=== PATIENT | male | born 1950 | race Caucasian/White ===

== ENCOUNTER 2021-05-18 17:32 | Inpatient (IN) | payer MEDICARE, OTHER ==
[~2021-05-18] VITALS: Ht 165.1 cm; Wt 77.7 kg
[~2021-05-18 17:32] MED LIST: AMLO2.5T2 PO; CARV3.122 PO; CLON-528 PO; COU3T PO; ENOX100S3 SQ; LEVO75TA56 PO; LOSA50TA3 PO; PANT40TA54 PO; ROSU20TA2 PO
[2021-05-18 18:46] LABS: BASOPHILS # (AUTO) 0.1 X10'3 (0-0.2); BASOPHILS % (AUTO) 0.8 % (0-1); EOSINOPHILS % (AUTO) 0.4 % (0-6); HEMOGLOBIN 10.8 g/dl (14.0-17.9); LYMPHOCYTES # (AUTO) 0.6 X10'3 (1.1-4.8); MEAN CORPUSCULAR HEMOGLOBIN 26.8 PG (27.0-31.0); MEAN CORPUSCULAR HGB CONC 31.7 g/dL (33.0-36.5); MEAN CORPUSCULAR VOLUME 84.7 FL (78-98); MEAN PLATELET VOLUME 8.6 FL (7.4-10.4); MONOCYTES # (AUTO) 0.9 X10'3 (0-0.9); MONOCYTES % (AUTO) 13.9 % (2-12); NEUTROPHILS % (AUTO) 75.9 % (42-75); PLATELET COUNT 337 X10'3 (140-440); RED BLOOD COUNT 4.02 X10'6 (4.70-6.10); RED CELL DISTRIBUTION WIDTH 18.8 % (11.5-14.5); WHITE BLOOD COUNT 6.6 X10'3 (4.5-11.0)
[2021-05-18 18:54] LABS: ALANINE AMINOTRANSFERASE 23 U/L (12-78); ALBUMIN 3.6 G/DL (3.4-5.0); ALBUMIN/GLOBULIN RATIO 1.1 (1.1-1.5); ALKALINE PHOSPHATASE 82 IU/L (46-116); ANION GAP 14 (8-16); ASPARTATE AMINO TRANSFERASE 26 U/L (10-37); BILIRUBIN,TOTAL 0.7 MG/DL (0.1-1.0); BLOOD UREA NITROGEN 53 MG/DL (7-18); BUN/CREATININE RATIO 22.6 (5.4-32.0); CALCIUM 8.8 MG/DL (8.5-10.1); CHLORIDE 104 MMOL/L (99-107); CREATININE 2.35 MG/DL (0.60-1.10); GLUCOSE 147 MG/DL (70-104); POTASSIUM 4.7 MMOL/L (3.5-5.1); SODIUM 142 MMOL/L (135-145); eGFR 27 ML/MIN
[2021-05-18 19:32] LABS: ANISOCYTOSIS 2+; HYPOCHROMASIA 1+; PLATELET ESTIMATE NORMAL
[2021-05-18 19:33] LABS: ELLIPTOCYTES 1+
[2021-05-18 19:37] LABS: ACANTHOCYTES FEW; LARGE PLATELETS FEW
[2021-05-19] MEDS ORDERED: acetaminophen 325mg tablet PO PRN (00:15)
[2021-05-19] MEDS ORDERED: potassium Cl 40MEQ/1/2NS 520ml 520 ML IV PRN ×2 (00:15)
[2021-05-19] MEDS ORDERED: ondansetron/PF 4mg/2ml inj IV PRN (00:15)
[2021-05-19] MEDS ORDERED: magnesium hydroxide 30ml (MOM) UD suspension PO PRN (00:15)
[2021-05-19] MEDS ORDERED: potassium Cl 20 mEq SR tablet PO PRN ×2 (00:15)
[2021-05-19] MEDS ORDERED: mag hydrox/Alum hydrox/simeth 30ml oral suspension PO PRN (00:15)
[2021-05-19] MEDS ORDERED: COLC0.6T72 PO (00:34)
[2021-05-19] MEDS ORDERED: WARF3TAB56 PO (00:34)
[2021-05-19] MEDS ORDERED: LEVO75TA7 PO (00:34)
[2021-05-19] MEDS ORDERED: CARV-50 PO (00:34)
[2021-05-19] MEDS ORDERED: FURO40TA4 PO (00:34)
[2021-05-19] MEDS ORDERED: ROSU10TA28 PO (00:34)
[2021-05-19] MEDS ORDERED: LOSA25TA96 PO (00:34)
[2021-05-19] MEDS ORDERED: PANT-47 PO (00:34)
[2021-05-19] MEDS ORDERED: FEBU80TA3 PO (00:34)
[2021-05-19 02:56] LABS: LACTATE DEHYDROGENASE 274 U/L (85-227)
[2021-05-19] MEDS: levoTHYROXINE 75mcg tablet PO SCH (07:35)
[2021-05-19] MEDS: pantoprazole 40mg Tablet.DR PO SCH (07:35)
[2021-05-19] MEDS: carvedilol 6.25mg tablet PO SCH ×2 (07:35→20:45)
[2021-05-19] MEDS: docusate sod 100mg capsule PO SCH ×2 (07:35→20:42)
[2021-05-19] MEDS: febuxostat 40mg tablet PO SCH (08:00)
[2021-05-19] MEDS: K and/or MAG REPLACEMENT MC SCH ×3 (08:00→20:00)
[2021-05-19] MEDS: colchicine 0.6mg tablet PO SCH (08:00)
[2021-05-19] MEDS ORDERED: PERFLUTREN PROTEIN-A MICROSPHR (Optison) 0.22 MG/ML 3ML VIAL IV ONE (08:00)
[2021-05-19] MEDS ORDERED: furosemide 10 MG/1 ML 10ml inj IV SCH (08:00)
[2021-05-19] MEDS ORDERED: heparin, porcine 5000 units/ml vial SQ SCH (08:00)
[2021-05-19] MEDS ORDERED: magnesium Cl slow-release 64mg tablet PO PRN (10:00)
[2021-05-19] MEDS ORDERED: magnesium 4gm in 100ml NS 100 ML IV PRN (10:00)
[2021-05-19 15:00] VITALS: BP 121/72
[2021-05-19 18:00] VITALS: BP 111/69
--- NOTE | 2021-05-19 18:26 | NUR ---
Received report althea Martines RN
[2021-05-19] MEDS: furosemide 40mg/4ml inj IV SCH (20:43)
[2021-05-19] MEDS ORDERED: atorvastatin 20mg tablet PO SCH (21:00)
[2021-05-19] MEDS ORDERED: warfarin 3mg tablet PO ONE (21:00)
[2021-05-19] MEDS ORDERED: losartan 25mg tablet PO SCH (21:00)
[2021-05-19] MEDS: clonazePAM 0.5mg tablet PO SCH (21:15)
[2021-05-19 22:00] VITALS: BP 125/80
[2021-05-20 02:00] VITALS: BP 118/76
--- NOTE | 2021-05-20 06:53 | NUR ---
Report given to Amara GARDNER.
[2021-05-20 06:56] LABS: ALANINE AMINOTRANSFERASE 20 U/L (12-78); ALBUMIN 3.7 G/DL (3.4-5.0); ALBUMIN/GLOBULIN RATIO 1.2 (1.1-1.5); ALKALINE PHOSPHATASE 82 IU/L (46-116); ANION GAP 11 (8-16); ASPARTATE AMINO TRANSFERASE 28 U/L (10-37); BASOPHILS % (AUTO) 0.7 % (0-1); BILIRUBIN,TOTAL 0.7 MG/DL (0.1-1.0); BLOOD UREA NITROGEN 53 MG/DL (7-18); BUN/CREATININE RATIO 26.4 (5.4-32.0); CHLORIDE 106 MMOL/L (99-107); CREATININE 2.01 MG/DL (0.60-1.10); EOSINOPHILS # (AUTO) 0.1 X10'3 (0-0.9); EOSINOPHILS % (AUTO) 0.9 % (0-6); GLUCOSE 110 MG/DL (70-104); HEMOGLOBIN 10.2 g/dl (14.0-17.9); LYMPHOCYTES # (AUTO) 0.7 X10'3 (1.1-4.8); LYMPHOCYTES % (AUTO) 10.9 % (21-51); MAGNESIUM 2.3 MG/DL (1.5-2.4); MEAN CORPUSCULAR HEMOGLOBIN 26.9 PG (27.0-31.0); MEAN CORPUSCULAR VOLUME 84.1 FL (78-98); MEAN PLATELET VOLUME 8.6 FL (7.4-10.4); MONOCYTES # (AUTO) 0.8 X10'3 (0-0.9); MONOCYTES % (AUTO) 12.5 % (2-12); PHOSPHORUS 4.2 MG/DL (2.3-4.5); PLATELET COUNT 316 X10'3 (140-440); POTASSIUM 3.4 MMOL/L (3.5-5.1); RED CELL DISTRIBUTION WIDTH 19.1 % (11.5-14.5); SODIUM 143 MMOL/L (135-145); TOTAL CARBON DIOXIDE 26.5 MMOL/L (24-32); TOTAL PROTEIN 6.8 G/DL (6.4-8.2); WHITE BLOOD COUNT 6.6 X10'3 (4.5-11.0); eGFR 33 ML/MIN
[2021-05-20 07:00] VITALS: BP 132/78
[2021-05-20] MEDS: K and/or MAG REPLACEMENT MC SCH ×2 (08:00)
[2021-05-20] MEDS: furosemide 40mg/4ml inj IV SCH (08:08)
[2021-05-20] MEDS: carvedilol 6.25mg tablet PO SCH (08:09)
[2021-05-20] MEDS: levoTHYROXINE 75mcg tablet PO SCH (08:09)
[2021-05-20] MEDS: febuxostat 40mg tablet PO SCH (08:09)
[2021-05-20] MEDS: docusate sod 100mg capsule PO SCH (08:09)
[2021-05-20] MEDS: colchicine 0.6mg tablet PO SCH (08:09)
[2021-05-20] MEDS: pantoprazole 40mg Tablet.DR PO SCH (08:09)
[2021-05-20] MEDS: clonazePAM 0.5mg tablet PO SCH (08:09)
[2021-05-20] MEDS ORDERED: FURO40TA4 PO (11:18)
[2021-05-20] MEDS ORDERED: POTA-207 PO (11:18)
--- NOTE | 2021-05-20 12:43 | NUR ---
Pt was DC to home at 1238 and was accompanied by his . PIV was removed with cannula intact. RX were escripted to [facility] in [place]. DC instructions and warning s/s were reviewed with the patient and his and they verbalized understanding. Patient alert, oriented, and appropriate at time of DC.
== END 2021-05-20 12:38 | disposition home or self-care (01) | DRG 682 ==
LOC: ER 17:34 → ED HOLD 05-19 00:18 → PCU 3S 05-19 13:48
PROVIDERS: ADMIT Internal Medicine; ATTEND Family Medicine
DX: N17.0 Acute kidney failure with tubular necrosis (principal); I50.21 Acute systolic (congestive) heart failure; I13.0 Hypertensive heart and chronic kidney disease with heart failure and stage 1 through stage 4 chronic kidney disease, or unspecified chronic kidney disease; I48.91 Unspecified atrial fibrillation; E87.6 Hypokalemia; I08.1 Rheumatic disorders of both mitral and tricuspid valves; F41.9 Anxiety disorder, unspecified; M10.9 Gout, unspecified; N18.9 Chronic kidney disease, unspecified; Z79.01 Long term (current) use of anticoagulants; Z79.899 Other long term (current) drug therapy; Z87.891 Personal history of nicotine dependence; Z95.0 Presence of cardiac pacemaker; Z95.2 Presence of prosthetic heart valve
CPT/HCPCS: 36415; 71046; 80053; 83615; 83735; 83880; 84100; 84484; 85008; 85025; 85610; 93005; 93306; 99285; G0378; J1940

== ENCOUNTER 2021-12-25 11:35 | Day surgery (SDC) | payer MEDICARE, OTHER ==
[2021-12-20 11:44] LABS: BASOPHILS # (AUTO) 0.1 X10'3 (0-0.2); BASOPHILS % (AUTO) 0.6 % (0-1); EOSINOPHILS # (AUTO) 0.3 X10'3 (0-0.9); EOSINOPHILS % (AUTO) 3.2 % (0-6); HEMATOCRIT 41.3 % (42.0-52.0); HEMOGLOBIN 13.8 g/dl (14.0-17.9); LYMPHOCYTES # (AUTO) 0.9 X10'3 (1.1-4.8); LYMPHOCYTES % (AUTO) 10.8 % (21-51); MEAN CORPUSCULAR HEMOGLOBIN 32.1 PG (27.0-31.0); MEAN CORPUSCULAR HGB CONC 33.4 g/dL (33.0-36.5); MEAN PLATELET VOLUME 8.5 FL (7.4-10.4); MONOCYTES % (AUTO) 11.1 % (2-12); NEUTROPHILS # (AUTO) 6.5 X10'3 (1.8-7.7); NEUTROPHILS % (AUTO) 74.3 % (42-75); PLATELET COUNT 331 X10'3 (140-440); RED CELL DISTRIBUTION WIDTH 15.2 % (11.5-14.5); WHITE BLOOD COUNT 8.8 X10'3 (4.5-11.0)
[2021-12-20 11:56] LABS: APTT 42 SECONDS (22-32)
[2021-12-20 12:02] LABS: ALBUMIN 4.2 G/DL (3.4-5.0); ANION GAP 12 (8-16); BLOOD UREA NITROGEN 65 MG/DL (7-18); BUN/CREATININE RATIO 26.5 (5.4-32.0); CALCIUM 9.5 MG/DL (8.5-10.1); CHLORIDE 100 MMOL/L (99-107); CHOL/HDL RATIO 3.5 (0.00-4.99); CHOLESTEROL 162 MG/DL (0-200); CREATININE 2.45 MG/DL (0.60-1.10); GLUCOSE 117 MG/DL (70-104); HDL CHOLESTEROL 46 MG/DL (35-60); LDL CHOLESTEROL 73 MG/DL (50-100); POTASSIUM 4.9 MMOL/L (3.5-5.1); SODIUM 139 MMOL/L (135-145); TOTAL CARBON DIOXIDE 26.6 MMOL/L (24-32); TRIGLYCERIDES 201 MG/DL (20-135); eGFR 26 ML/MIN
[~2021-12-25] VITALS: Ht 165.1 cm; Wt 65.7 kg
[2021-12-25] VITALS (10 sets, daily range): BP systolic 96–126; BP diastolic 55–68
[~2021-12-25 11:35] MED LIST changes: -AMLO2.5T2 PO; +CARV-50 PO; -CARV3.122 PO; -CLON-528 PO; +COLC0.6T72 PO; -COU3T PO; -ENOX100S3 SQ; +FEBU80TA3 PO; +FURO40TA4 PO; -LEVO75TA56 PO; +LEVO75TA7 PO; +LOSA25TA96 PO; -LOSA50TA3 PO; +PANT-47 PO; -PANT40TA54 PO; +POTA-207 PO; +ROSU10TA28 PO; -ROSU20TA2 PO; +WARF3TAB56 PO
[2021-12-25] MEDS ORDERED: normal saline 1,000 ML IV SCH (11:55)
[2021-12-25] MEDS ORDERED: LORazepam 0.5 MG tablet PO PRN (11:55)
[2021-12-25] MEDS ORDERED: diphenhydrAMINE 25mg capsule PO PRN (11:55)
[2021-12-25] MEDS ORDERED: WARF-65 PO (12:23)
[2021-12-25] MEDS ORDERED: FURO40TA4 PO (12:23)
[2021-12-25] MEDS ORDERED: DAPA10TA PO (12:23)
[2021-12-25] MEDS ORDERED: ENOX60DI10 SQ (12:23)
[2021-12-25] MEDS ORDERED: CLON0.5T5 PO (12:23)
[2021-12-25] MEDS ORDERED: LEVO75TA56 PO (12:23)
[2021-12-25] MEDS ORDERED: nitroGLYCERIN-Tridil 50MG/D5W 0 ML IV ONE (12:43)
[2021-12-25] MEDS ORDERED: LIDOcaine 1%/PF 5ML 10 MG/ML VIAL ONE (12:43)
[2021-12-25] MEDS ORDERED: heparin 1,000unit/ml 10ml vial 0 ML ONE (12:43)
[2021-12-25] MEDS ORDERED: LIDOcaine 1% 30ml preserv. free vial ONE (12:44)
[2021-12-25] MEDS ORDERED: heparin 1,000 UNITS/NS 500ml 0 ML ONE (12:44)
[2021-12-25] MEDS ORDERED: midazolam 1 mg/ML 2ml injection ONE (12:44)
[2021-12-25] MEDS ORDERED: verapamil 2.5 mg/ml inj IV ONE ×2 (12:44→12:48)
[2021-12-25] MEDS ORDERED: nitroGLYCERIN-Tridil 50MG/D5W 250 ML IV ONE (12:44)
[2021-12-25] MEDS ORDERED: fentaNYL/PF 50MCG/1 ML 2ML syringe ONE (12:44)
[2021-12-25] MEDS ORDERED: heparin 1,000unit/ml 10ml vial 10 ML ONE (12:45)
[2021-12-25] MEDS ORDERED: iohexol 350MG/ML 100ml bottle IV ONE ×2 (12:45→12:48)
[2021-12-25] MEDS ORDERED: COLC0.6T72 PO (12:50)
[2021-12-25] MEDS ORDERED: ondansetron/PF 4mg/2ml inj IV PRN (14:55)
[2021-12-25] MEDS ORDERED: HYDROcodone/acetaminophen 5mg/325mg tablet PO PRN (15:00)
[2021-12-25] MEDS ORDERED: HYDROcodone/acetaminophen 10/325mg tab PO PRN (15:00)
[2021-12-25] MEDS ORDERED: proCHLORperazine 10 MG/2 ml inj IV PRN (15:00)
[2021-12-26 07:16] LABS: ISTAT HGB ART 12.9 g/dl (14.0-18.0); ISTAT Hct ART 38 %PCV (42-52); ISTAT O2 SATURATION ARTERIAL 96 % (95-98); ISTAT SOURCE ART
[2021-12-26 10:11] LABS: ISTAT Hct MIX 40 %PCV (42-52); ISTAT O2 SATURATION MIX VENOUS 60 % (60-80); ISTAT SOURCE VEN
== END 2021-12-25 16:47 | disposition home or self-care (01) ==
LOC: SSTAY O 11:35
PROVIDERS: ATTEND Student in an Organized Health Care Education/Training Program
DX: I11.0 Hypertensive heart disease with heart failure (principal); I50.22 Chronic systolic (congestive) heart failure; I25.10 Atherosclerotic heart disease of native coronary artery without angina pectoris; I48.91 Unspecified atrial fibrillation; I42.9 Cardiomyopathy, unspecified; E03.9 Hypothyroidism, unspecified; I08.0 Rheumatic disorders of both mitral and aortic valves; E78.5 Hyperlipidemia, unspecified; Z79.899 Other long term (current) drug therapy; Z79.01 Long term (current) use of anticoagulants; Z95.0 Presence of cardiac pacemaker; Z95.2 Presence of prosthetic heart valve; Z87.891 Personal history of nicotine dependence
CPT/HCPCS: 36415; 80048; 80061; 82803; 85014; 85025; 85610; 85730; 93005; 93456; 99152; 99153; C1751; C1769; C1894; J1644; J2250; J3010; J3490; J7030; Q0163; Q9967; A5120; A6258; A6402

== ENCOUNTER 2022-04-10 05:37 | Inpatient (IN) | payer MEDICARE, OTHER ==
[2022-04-08 12:11] LABS: BASOPHILS # (AUTO) 0.1 X10'3 (0-0.2); BASOPHILS % (AUTO) 0.6 % (0-1); EOSINOPHILS # (AUTO) 0.2 X10'3 (0-0.9); EOSINOPHILS % (AUTO) 2.6 % (0-6); LYMPHOCYTES # (AUTO) 0.9 X10'3 (1.1-4.8); LYMPHOCYTES % (AUTO) 9.2 % (21-51); MEAN CORPUSCULAR HEMOGLOBIN 33.2 PG (27.0-31.0); MEAN CORPUSCULAR VOLUME 97.6 FL (78-98); MEAN PLATELET VOLUME 8.6 FL (7.4-10.4); MONOCYTES # (AUTO) 1.1 X10'3 (0-0.9); MONOCYTES % (AUTO) 11.6 % (2-12); PRE OP HEMATOCRIT 44.2 % (42.0-52.0); PRE OP HEMOGLOBIN 15.1 g/dL (14.0-17.9); PRE OP PLATELET COUNT 322 X10'3 (140-440); RED BLOOD COUNT 4.53 X10'6 (4.70-6.10); RED CELL DISTRIBUTION WIDTH 13.1 % (11.5-14.5)
[2022-04-08 12:19] LABS: CLARITY,URINE CLEAR (Clear); COLOR,URINE YELLOW (Yellow); GLUCOSE, URINE >=1000 mg/dl (Neg); KETONES,URINE NEGATIVE (Neg); LEUKOCYTE ESTERASE ,URINE NEGATIVE (Neg); NITRITES, URINE NEGATIVE (Neg); OCCULT BLOOD,URINE NEGATIVE (Neg); PH,URINE 5.5 (4.8-8.0); PROTEIN,URINE NEGATIVE (Neg); UROBILINOGEN,URINE 0.2 E.U/dL (0.2-1.0)
[2022-04-08 12:24] LABS: PRE OP PROTIME 19.4 SECONDS (9.0-12.0)
[2022-04-08 12:25] LABS: UA COLLECTION TYPE CLN CATCH MIDSTREAM
[2022-04-08 12:26] LABS: BACTERIA,URINE NONE SEEN /HPF (Neg); MUCUS STRANDS NONE SEEN /LPF (Neg); RBC,URINE NONE SEEN /HPF (0-2); SQUAMOUS EPITHELIAL CELL,UR FEW /LPF (FEW); WBC,URINE NONE SEEN /HPF (0-4)
[2022-04-08 12:40] LABS: ALBUMIN 4.4 G/DL (3.4-5.0); ALBUMIN/GLOBULIN RATIO 1.1 (1.1-1.5); ALKALINE PHOSPHATASE 93 IU/L (46-116); BLOOD UREA NITROGEN 76 MG/DL (7-18); BUN/CREATININE RATIO 30.8 (5.4-32.0); CHLORIDE 97 MMOL/L (99-107); CREATININE 2.47 MG/DL (0.60-1.10); PRE OP ALT 32 U/L (30-65); PRE OP ANION GAP 10 (8-16); PRE OP AST 37 U/L (10-37); PRE OP BILIRUB, TOTAL 0.7 MG/DL (0.0-1.0); PRE OP GLUCOSE 132 MG/DL (70-104); PRE OP POTASSIUM 4.8 MMOL/L (3.4-5.1); PRE OP SODIUM 137 MMOL/L (135-145); TOTAL CARBON DIOXIDE 30.3 MMOL/L (24-32); TOTAL PROTEIN 8.3 G/DL (6.4-8.2); eGFR 26 ML/MIN
[2022-04-08 12:53] LABS: HEMOGLOBIN A1C 5.7 % (4.5-6.2)
[2022-04-08 15:42] LABS: ABG BASE EXCESS -2.3 mmol/L (-2.0-2.0); ABG HCO3 21.6 mmol/L (22.0-26.0); ABG OXYGEN SATURATION 97.1 % (94-97); ABG PCO2 (T) 34.7 mmHg (35.0-48.0); ALLEN'S TEST POSITIVE; FCOHb 0.6 % (0.0-3.9); FMetHb 0.3 % (0.0-1.5); FO2Hb 96.2 % (94-97); TOTAL HEMOGLOBIN 14.6 G/dl (14.0-17.9)
[~2022-04-10] VITALS: Ht 165.1 cm; Wt 67.0 kg
[2022-04-10] VITALS (20 sets, daily range): BP systolic 99–173; BP diastolic 37–73
[2022-04-10] MEDS: insulin glargine (Lantus) pen - multi-dose SQ SCH ×2 (05:30→20:09)
[~2022-04-10 05:37] MED LIST changes: +ATRIN NAS; +CHOL400T57 PO; +CLON0.5T5 PO; -COLC0.6T72 PO; +DAPA10TA PO; +DEXTROSE 15 GM of carb/4 tabs (each vial/BOTTLE has 4 tablets) PO PRN; +DOCUMENT DATE & TIME OF BETA-BLOCKER PO ONE; +FERR236T3 PO; +Insulin Reg/NS 100units/100mL 100 ML IV SCH; +LEVO75TA56 PO; -LEVO75TA7 PO; +LORazepam 2 mg/ml vial IV ONE; +MESSAGE TO PHARMACY PO ONE; -POTA-207 PO; +SPIR25TA5 PO; +WARF1TAB83 PO; -WARF3TAB56 PO; +ceFAZolin inj. 2,000 MG in dextrose 5%-water 100 ML IV ONE; +dextrose 50%-water 50ml dispensing syringe IV PRN; +famotidine 20mg tablet PO ONE; +glucagon, human recombinant 1mg kit SUBCUT PRN; +insulin Lispro (HumaLOG) vial - multi-dose SQ SCH; +ipratropium 0.5 MG/2.5ML nebule NEB PRN; +metoprolol tartrate 12.5mg (1/2 tablet) PO ONE; +mupirocin 2% nasal ointment 1gm UD NS ONE; +ringers solution, lacted 1,000 ML IV SCH; +vancomycin/NS 1 GM in NS 250 ML IV ONE
[2022-04-10] MEDS ORDERED: epiNEPHrine 1 mg/ml inj ONE (05:45)
[2022-04-10] MEDS ORDERED: ceFAZolin 1000mg inj ONE (05:45)
[2022-04-10] MEDS ORDERED: BUPIVAcaine/PF 2.5 mg/ml (0.25%) 30ml vial ONE (05:45)
[2022-04-10 06:38] LABS: PRE OP PARTIAL THROMB. TIME 34 SECONDS (22-32)
[2022-04-10] MEDS ORDERED: propofol 10mg/ml 20ml vial IV ONE (07:18)
[2022-04-10] MEDS ORDERED: protamine sulf. 10mg/ml inj. IV ONE (07:18)
[2022-04-10] MEDS ORDERED: isoflurane 100ml inhalation liquid IH ONE (07:18)
[2022-04-10] MEDS ORDERED: DOBUTamine/D5W 500mg/250ml premix IV ONE (07:18)
[2022-04-10] MEDS ORDERED: NORepinephrine 8 MG in NS 250 ML BAG (32 mcg/ml) IV ONE (07:18)
[2022-04-10] MEDS ORDERED: nitroGLYCERIN in D5W 50mg/250ml (Tridil) infusion IV ONE (07:18)
[2022-04-10] MEDS ORDERED: aminocaproic acid 250 MG/1 ML inj. ONE (07:18)
[2022-04-10] MEDS ORDERED: fentaNYL /PF 50mcg/ml 5ml ampule ONE (07:23)
[2022-04-10] MEDS ORDERED: MIDAZolam 1mg/ml 10ml vial ONE (07:23)
[2022-04-10] MEDS ORDERED: heparin 10,000 units/1 ML INJ ONE (08:00)
[2022-04-10 08:13] LABS: ABG BASE EXCESS -0.3 mmol/L (-2.0-2.0); ABG HCO3 23.1 mmol/L (22.0-26.0); ABG OXYGEN SATURATION 99.5 % (94-97); CL (ABG) 102 mmol/L (99-107); FCOHb 0.7 % (0.0-3.9); FMetHb 0.3 % (0.0-1.5); FO2Hb 98.5 % (94-97); GLUCOSE (ABG) 114 mg/dl (70-104); IONIZED CA (ABG) 1.17 mmol/L (1.10-1.30); K (ABG) 4.1 mmol/L (3.5-5.1); TOTAL HEMOGLOBIN 13.8 G/dl (14.0-17.9)
[2022-04-10 08:21] LABS: ACT @ 1.70 U 319 SEC (193-297); ACT @ 2.84 U 536 SEC (260-420); BASELINE ACT 134 SEC (101-148); PATIENT WEIGHT 61.0k KG
[2022-04-10] MEDS ORDERED: rocuronium 10mg/ml inj IV ONE ×2 (08:51)
[2022-04-10] MEDS ORDERED: LIDOcaine 2% (20mg/ml) 5ml vial ONE (08:51)
[2022-04-10] MEDS ORDERED: 0.9 % SODIUM CHLORIDE 10 ML VIAL ONE (08:51)
[2022-04-10] MEDS ORDERED: phenylephrine 10mg/ml inj. ONE (08:52)
[2022-04-10] MEDS ORDERED: midazolam 1 mg/ML 2ml injection IV PRN (09:10)
[2022-04-10] MEDS ORDERED: FENTANYL-0.9 % NACL/PF 100 ML IV PRN (09:10)
[2022-04-10] MEDS ORDERED: fentaNYL/PF 50MCG/1 ML 2ML syringe IV PRN (09:10)
[2022-04-10] MEDS ORDERED: propofol 1000mg/100ml bottle 100 ML IV SCH (09:10)
[2022-04-10 09:18] LABS: ABG BASE EXCESS VENOUS -3.9 mmol/L (-2.0 - 2.0); ABG HCO3 VENOUS 19.7 mmol/L (21.0-28.0); ABG PCO2 VENOUS 31.3 mmHg (41.0-54.0); ABG PO2 VENOUS 515.6 mmHg (25.0-35.0); CL (ABG) 102 mmol/L (99-107); FCOHb VENOUS 0.7 %; FHHb VENOUS 0.4 %; FMetHb VENOUS 0.3 % (0.0 - 0.5); FO2Hb VENOUS 98.6 %; GLUCOSE (ABG) 147 mg/dl (70-104); IONIZED CA (ABG) 1.13 mmol/L (1.10-1.30); K (ABG) 4.1 mmol/L (3.5-5.1)
[2022-04-10] MEDS ORDERED: ondansetron/PF 4mg/2ml inj ONE (09:20)
[2022-04-10] MEDS ORDERED: dexamethasone sod phosphate 4mg/ml inj. ONE (09:20)
[2022-04-10 09:21] LABS: ACTIVATED CLOTTING TIME 131 SEC (101-148)
[2022-04-10] MEDS ORDERED: morphine 10mg/ml inj. ONE (09:37)
[2022-04-10] MEDS ORDERED: ondansetron/PF 4mg/2ml inj IV PRN (09:40)
[2022-04-10] MEDS ORDERED: magnesium citrate 296ml oral solution PO PRN (09:40)
[2022-04-10] MEDS ORDERED: bisacodyl 10mg suppository rectal RC PRN (09:40)
[2022-04-10] MEDS ORDERED: sodium phosphate inj. 30 MMOL in dextrose 5%-water 250 ML IV PRN (09:40)
[2022-04-10] MEDS ORDERED: niCARDipine-NS 40mg/200ml IVPB 200 ML IV PRN (09:40)
[2022-04-10] MEDS ORDERED: sodium chloride 0.45% 1,000 ML IV SCH (09:40)
[2022-04-10] MEDS ORDERED: potassium Cl 20mEq/100mL bag 100 ML IV PRN (09:40)
[2022-04-10] MEDS ORDERED: Insulin Reg/NS 100units/100mL 100 ML IV SCH (09:40)
[2022-04-10] MEDS ORDERED: nitroGLYCERIN-Tridil 50MG/D5W 250 ML IV SCH ×2 (09:40→10:30)
[2022-04-10] MEDS ORDERED: HYDROcodone/acetaminophen 10/325mg tab PO PRN (09:40)
[2022-04-10] MEDS ORDERED: acetaminophen 325mg tablet PO PRN ×2 (09:40)
[2022-04-10] MEDS ORDERED: dextrose 50%-water 50ml dispensing syringe IV PRN (09:40)
[2022-04-10] MEDS ORDERED: magnesium 4gm in 100ml NS 100 ML IV PRN (09:40)
[2022-04-10] MEDS ORDERED: mineral oil 133ml enema RC PRN (09:40)
[2022-04-10] MEDS ORDERED: insulin glargine (Lantus) pen - multi-dose SQ PRN (09:40)
[2022-04-10] MEDS ORDERED: potassium CL 10mEq/100ml bag 100 ML IV PRN (09:40)
[2022-04-10] MEDS ORDERED: magnesium hydroxide 30ml (MOM) UD suspension PO PRN (09:40)
[2022-04-10] MEDS ORDERED: potassium Cl 20 mEq SR tablet PO PRN (09:40)
[2022-04-10] MEDS ORDERED: Neutra Phos packet PO PRN (09:40)
[2022-04-10] MEDS ORDERED: magnesium 2GM in 50ml NS 50 ML IV PRN (09:40)
[2022-04-10] MEDS ORDERED: albumin (Human) 5% 250ml 250 ML IV PRN (09:40)
[2022-04-10] MEDS ORDERED: morphine 4 MG/ML inj SYRINge IV PRN (09:40)
[2022-04-10] MEDS ORDERED: sodium phosphate inj. 15 MMOL in dextrose 5%-water 250 ML IV PRN (09:40)
[2022-04-10 10:13] LABS: ABG BASE EXCESS -5.5 mmol/L (-2.0-2.0); ABG HCO3 18.1 mmol/L (22.0-26.0); ABG OXYGEN SATURATION 99.1 % (94-97); ABG PCO2 (T) 28.1 mmHg (35.0-48.0); ABG PO2 (T) 253.8 mmHg (75.0-100.0); FCOHb 0.5 % (0.0-3.9); FMetHb 0.2 % (0.0-1.5); FO2Hb 98.4 % (94-97); PATIENT TEMPERATURE 35.3; PEEP 5 cm H2O; RESPIRATORY RATE 12 b/min; TIDAL VOLUME 500 mL; TOTAL HEMOGLOBIN 13.6 G/dl (14.0-17.9)
[2022-04-10] MEDS ORDERED: niCARDipine-NS 40mg/200ml IVPB 200 ML IV ONE (10:13)
[2022-04-10 10:29] LABS: APTT 34 SECONDS (22-32)
[2022-04-10 10:32] LABS: ALANINE AMINOTRANSFERASE 22 U/L (12-78); ALBUMIN 3.5 G/DL (3.4-5.0); ALBUMIN/GLOBULIN RATIO 1.1 (1.1-1.5); ALKALINE PHOSPHATASE 73 IU/L (46-116); ANION GAP 14 (8-16); ASPARTATE AMINO TRANSFERASE 31 U/L (10-37); BASOPHILS # (AUTO) 0.1 X10'3 (0-0.2); BASOPHILS % (AUTO) 0.5 % (0-1); BILIRUBIN,TOTAL 0.7 MG/DL (0.1-1.0); BLOOD UREA NITROGEN 83 MG/DL (7-18); BUN/CREATININE RATIO 36.1 (5.4-32.0); CALCIUM 8.9 MG/DL (8.5-10.1); CHLORIDE 101 MMOL/L (99-107); EOSINOPHILS # (AUTO) 0.2 X10'3 (0-0.9); EOSINOPHILS % (AUTO) 1.6 % (0-6); GLUCOSE 151 MG/DL (70-104); HEMATOCRIT 38.5 % (42.0-52.0); HEMOGLOBIN 12.9 g/dl (14.0-17.9); LYMPHOCYTES # (AUTO) 0.7 X10'3 (1.1-4.8); LYMPHOCYTES % (AUTO) 4.8 % (21-51); MEAN CORPUSCULAR HEMOGLOBIN 32.5 PG (27.0-31.0); MEAN CORPUSCULAR HGB CONC 33.5 g/dL (33.0-36.5); MEAN CORPUSCULAR VOLUME 97.2 FL (78-98); MEAN PLATELET VOLUME 8.8 FL (7.4-10.4); MONOCYTES % (AUTO) 7.3 % (2-12); NEUTROPHILS # (AUTO) 12.1 X10'3 (1.8-7.7); NEUTROPHILS % (AUTO) 85.8 % (42-75); PHOSPHORUS 3.4 MG/DL (2.3-4.5); PLATELET COUNT 235 X10'3 (140-440); POTASSIUM 3.9 MMOL/L (3.5-5.1); RED BLOOD COUNT 3.96 X10'6 (4.70-6.10); RED CELL DISTRIBUTION WIDTH 12.8 % (11.5-14.5); SODIUM 136 MMOL/L (135-145); TOTAL CARBON DIOXIDE 20.6 MMOL/L (24-32); TOTAL PROTEIN 6.6 G/DL (6.4-8.2); WHITE BLOOD COUNT 14.1 X10'3 (4.5-11.0); eGFR 28 ML/MIN
[2022-04-10] MEDS ORDERED: ALBUMIN HUMAN 5% 500ML 500 ML IV ONE ×2 (12:30→23:10)
[2022-04-10] MEDS: morphine 2 MG/ML inj. syringe IV PRN ×2 (13:01→16:40)
[2022-04-10 15:44] LABS: BASOPHILS % (AUTO) 0.2 % (0-1); EOSINOPHILS % (AUTO) 0.1 % (0-6); HEMATOCRIT 33.6 % (42.0-52.0); HEMOGLOBIN 11.5 g/dl (14.0-17.9); LYMPHOCYTES # (AUTO) 0.3 X10'3 (1.1-4.8); MEAN CORPUSCULAR HEMOGLOBIN 33.3 PG (27.0-31.0); MEAN CORPUSCULAR HGB CONC 34.3 g/dL (33.0-36.5); MEAN CORPUSCULAR VOLUME 97.2 FL (78-98); MEAN PLATELET VOLUME 8.5 FL (7.4-10.4); MONOCYTES # (AUTO) 0.4 X10'3 (0-0.9); NEUTROPHILS % (AUTO) 92.7 % (42-75); PLATELET COUNT 227 X10'3 (140-440); RED BLOOD COUNT 3.46 X10'6 (4.70-6.10); WHITE BLOOD COUNT 10.8 X10'3 (4.5-11.0)
[2022-04-10 15:59] LABS: ANION GAP 11 (8-16); BLOOD UREA NITROGEN 77 MG/DL (7-18); BUN/CREATININE RATIO 32.8 (5.4-32.0); CALCIUM 9.2 MG/DL (8.5-10.1); CHLORIDE 104 MMOL/L (99-107); CREATININE 2.35 MG/DL (0.60-1.10); GLUCOSE 140 MG/DL (70-104); PHOSPHORUS 2.9 MG/DL (2.3-4.5); POTASSIUM 4.1 MMOL/L (3.5-5.1); SODIUM 136 MMOL/L (135-145); eGFR 27 ML/MIN
[2022-04-10 16:07] LABS: MAGNESIUM 4.1 MG/DL (1.5-2.4)
[2022-04-10] MEDS: ceFAZolin/D5W- 1GM premix 50 ML IV SCH (16:12)
--- NOTE | 2022-04-10 16:50 | NUR ---
up to chair with 2 standby assist
--- NOTE | 2022-04-10 18:20 | NUR ---
Patient in room CICU 2013. I have received report from Erica Olivarez RN and had the opportunity to ask questions and assume patient care.
[2022-04-10] MEDS ORDERED: vancomycin/NS 1 GM ADD-VANTAGE 250 ML IV SCH (20:00)
[2022-04-10] MEDS: atorvastatin 10mg tablet PO SCH (20:01)
[2022-04-10] MEDS: sennosides/docusate sodium tablet PO SCH (20:01)
[2022-04-10] MEDS: mupirocin 2% nasal ointment 1gm UD NS SCH (20:01)
[2022-04-10] MEDS: HYDROcodone/acetaminophen 10/325mg tab PO PRN (21:11)
[2022-04-11] VITALS (14 sets, daily range): BP systolic 97–121; BP diastolic 33–55
[2022-04-11] MEDS: ceFAZolin/D5W- 1GM premix 50 ML IV SCH ×3 (00:33→17:50)
[2022-04-11 02:12] LABS: BASOPHILS % (AUTO) 0.1 % (0-1); EOSINOPHILS % (AUTO) 0 % (0-6); HEMATOCRIT 31.7 % (42.0-52.0); HEMOGLOBIN 10.8 g/dl (14.0-17.9); LYMPHOCYTES # (AUTO) 0.4 X10'3 (1.1-4.8); LYMPHOCYTES % (AUTO) 2.7 % (21-51); MEAN CORPUSCULAR HEMOGLOBIN 33.2 PG (27.0-31.0); MEAN CORPUSCULAR VOLUME 97.5 FL (78-98); MEAN PLATELET VOLUME 8.7 FL (7.4-10.4); MONOCYTES # (AUTO) 1.1 X10'3 (0-0.9); MONOCYTES % (AUTO) 7.5 % (2-12); NEUTROPHILS # (AUTO) 12.6 X10'3 (1.8-7.7); NEUTROPHILS % (AUTO) 89.7 % (42-75); PLATELET COUNT 202 X10'3 (140-440); RED BLOOD COUNT 3.25 X10'6 (4.70-6.10); RED CELL DISTRIBUTION WIDTH 12.8 % (11.5-14.5); WHITE BLOOD COUNT 14.1 X10'3 (4.5-11.0)
[2022-04-11 02:25] LABS: ALANINE AMINOTRANSFERASE 20 U/L (12-78); ALBUMIN 3.9 G/DL (3.4-5.0); ALBUMIN/GLOBULIN RATIO 1.4 (1.1-1.5); ALKALINE PHOSPHATASE 58 IU/L (46-116); ANION GAP 12 (8-16); ASPARTATE AMINO TRANSFERASE 31 U/L (10-37); BILIRUBIN,TOTAL 0.5 MG/DL (0.1-1.0); BLOOD UREA NITROGEN 75 MG/DL (7-18); BUN/CREATININE RATIO 30.2 (5.4-32.0); CHLORIDE 103 MMOL/L (99-107); CREATININE 2.48 MG/DL (0.60-1.10); GLUCOSE 137 MG/DL (70-104); MAGNESIUM 3.4 MG/DL (1.5-2.4); PHOSPHORUS 3.9 MG/DL (2.3-4.5); POTASSIUM 4.6 MMOL/L (3.5-5.1); SODIUM 137 MMOL/L (135-145); TOTAL CARBON DIOXIDE 21.6 MMOL/L (24-32); TOTAL PROTEIN 6.7 G/DL (6.4-8.2); TRIGLYCERIDES 54 MG/DL (20-135); eGFR 26 ML/MIN
[2022-04-11] MEDS: HYDROcodone/acetaminophen 10/325mg tab PO PRN ×2 (03:20→16:30)
--- NOTE | 2022-04-11 04:52 | NUR ---
Patient appeared to be resting on and off throughout the night. Patient able to use IS and PEP valve while a awake with good effort. Patient needing intermittent pain medication to manage pain. Patient educated on sternal precautions, patient able to demonstrate good use of sternal precautions.
--- NOTE | 2022-04-11 06:11 | NUR ---
Problems reprioritized. Patient report given, questions answered & plan of care reviewed with JJ Magallanes.
[2022-04-11] MEDS: levoTHYROXINE 75mcg tablet PO SCH (07:11)
[2022-04-11] MEDS: potassium Cl 20 mEq SR tablet PO SCH ×2 (08:00→20:00)
[2022-04-11] MEDS ORDERED: febuxostat 40mg tablet PO SCH (08:00)
[2022-04-11] MEDS: magnesium Cl slow-release 64mg tablet PO SCH ×2 (08:00→20:00)
[2022-04-11] MEDS ORDERED: HYDR-3972 PO (08:27)
[2022-04-11] MEDS ORDERED: ASPI81TA53 PO (08:27)
[2022-04-11] MEDS: mupirocin 2% nasal ointment 1gm UD NS SCH ×2 (08:34→20:00)
[2022-04-11] MEDS: aspirin 81mg tab.chew PO SCH (08:34)
[2022-04-11] MEDS: sennosides/docusate sodium tablet PO SCH ×2 (08:35→21:15)
[2022-04-11] MEDS: metoprolol tartrate 12.5mg (1/2 tablet) PO SCH ×2 (08:35→21:14)
[2022-04-11] MEDS: heparin, porcine 5000 units/ml vial SQ SCH ×2 (08:35→16:28)
[2022-04-11] MEDS: ferrous gluconate 324mg tablet PO SCH (08:36)
--- NOTE | 2022-04-11 13:46 | NUR ---
Nutrition consult: Pt POD #1 s/p MIDCABG, seen at bedside provided with written and verbal nutrition therapy education. Noted most recent lipid panel in EMR from 12/20/21 is WNL. Pt verbalized understanding to education provided. Pt endorses a good appetite and denies food allergies or difficulty chewing/swallowing. Pt does report some difficulty feeding self and agrees to chopped food, d/w dietary. Pt provided with RD contact information and encouraged to reach out if needed. Will remain available. Addendum: 04/11/22 at [address] Amended: Links added.
[2022-04-11] MEDS ORDERED: mineral oil/petrolatum ophthal oint EACHEYE SCH (14:00)
[2022-04-11] MEDS ORDERED: warfarin 1mg tablet PO SCH (21:00)
[2022-04-11] MEDS: atorvastatin 10mg tablet PO SCH (21:14)
[2022-04-12] MEDS: ceFAZolin/D5W- 1GM premix 50 ML IV SCH (00:46)
[2022-04-12] MEDS: heparin, porcine 5000 units/ml vial SQ SCH ×2 (00:46→08:24)
[2022-04-12] MEDS: HYDROcodone/acetaminophen 10/325mg tab PO PRN (00:54)
[2022-04-12 02:00] VITALS: BP 110/59
[2022-04-12 06:00] VITALS: BP 111/55
[2022-04-12 06:39] LABS: BASOPHILS % (AUTO) 0.1 % (0-1); EOSINOPHILS % (AUTO) 0.1 % (0-6); HEMATOCRIT 34.1 % (42.0-52.0); HEMOGLOBIN 11.5 g/dl (14.0-17.9); LYMPHOCYTES # (AUTO) 0.7 X10'3 (1.1-4.8); LYMPHOCYTES % (AUTO) 4.8 % (21-51); MEAN CORPUSCULAR HEMOGLOBIN 32.9 PG (27.0-31.0); MEAN CORPUSCULAR HGB CONC 33.7 g/dL (33.0-36.5); MEAN CORPUSCULAR VOLUME 97.6 FL (78-98); MEAN PLATELET VOLUME 9.3 FL (7.4-10.4); MONOCYTES # (AUTO) 2.5 X10'3 (0-0.9); MONOCYTES % (AUTO) 16.3 % (2-12); NEUTROPHILS # (AUTO) 12.1 X10'3 (1.8-7.7); NEUTROPHILS % (AUTO) 78.7 % (42-75); PLATELET COUNT 223 X10'3 (140-440); RED BLOOD COUNT 3.49 X10'6 (4.70-6.10); RED CELL DISTRIBUTION WIDTH 13.3 % (11.5-14.5); WHITE BLOOD COUNT 15.4 X10'3 (4.5-11.0)
[2022-04-12 06:54] LABS: ALBUMIN 3.7 G/DL (3.4-5.0); ANION GAP 8 (8-16); BLOOD UREA NITROGEN 76 MG/DL (7-18); BUN/CREATININE RATIO 27.5 (5.4-32.0); CALCIUM 9.1 MG/DL (8.5-10.1); CHLORIDE 102 MMOL/L (99-107); CREATININE 2.76 MG/DL (0.60-1.10); GLUCOSE 126 MG/DL (70-104); POTASSIUM 4.7 MMOL/L (3.5-5.1); SODIUM 134 MMOL/L (135-145); TOTAL CARBON DIOXIDE 23.8 MMOL/L (24-32); eGFR 23 ML/MIN
[2022-04-12] MEDS: levoTHYROXINE 75mcg tablet PO SCH (07:00)
[2022-04-12] MEDS ORDERED: pantoprazole 40mg Tablet.DR PO SCH (07:30)
[2022-04-12] MEDS: aspirin 81mg tab.chew PO SCH (08:23)
[2022-04-12] MEDS: sennosides/docusate sodium tablet PO SCH (08:23)
[2022-04-12] MEDS: ferrous gluconate 324mg tablet PO SCH (08:23)
[2022-04-12] MEDS: magnesium Cl slow-release 64mg tablet PO SCH (08:23)
[2022-04-12] MEDS: potassium Cl 20 mEq SR tablet PO SCH (08:23)
[2022-04-12 08:24] VITALS: BP_SYST 111
[2022-04-12] MEDS: metoprolol tartrate 12.5mg (1/2 tablet) PO SCH (08:24)
[2022-04-12] MEDS: mupirocin 2% nasal ointment 1gm UD NS SCH (08:24)
--- NOTE | 2022-04-12 10:45 | NUR ---
Discharge instructions discussed with pt and spouse. All questions answered. Both stated they understood all instructions. Removed piv and telemetry. Pt ambulated with son off unit to private car.
== END 2022-04-12 11:19 | disposition home or self-care (01) | DRG 235 ==
LOC: PAS IN 05:37 → CICU 2S 10:11 → PCU 3S 04-11 12:41
PROVIDERS: ADMIT Thoracic Surgery (Cardiothoracic Vascular Surgery); ATTEND Thoracic Surgery (Cardiothoracic Vascular Surgery)
PROC: B24BZZ4 Ultrasonography of Heart with Aorta, Transesophageal (ICD-10-PCS; 2022-04-10)
PROC: 02100Z9 Bypass Coronary Artery, One Artery from Left Internal Mammary, Open Approach (ICD-10-PCS; principal; 2022-04-10 07:18)
DX: I25.10 Atherosclerotic heart disease of native coronary artery without angina pectoris (principal); N17.0 Acute kidney failure with tubular necrosis; I12.9 Hypertensive chronic kidney disease with stage 1 through stage 4 chronic kidney disease, or unspecified chronic kidney disease; I42.0 Dilated cardiomyopathy; M10.9 Gout, unspecified; I48.91 Unspecified atrial fibrillation; N18.9 Chronic kidney disease, unspecified; Z79.01 Long term (current) use of anticoagulants; Z95.0 Presence of cardiac pacemaker; Z95.2 Presence of prosthetic heart valve; Z79.899 Other long term (current) drug therapy
CPT/HCPCS: 36415; 36600; 71045; 71046; 80048; 80053; 81001; 82330; 82435; 82803; 82947; 82948; 83036; 83735; 84100; 84132; 84295; 84443; 84478; 85018; 85025; 85347; 85610; 85730; 86885; 86900; 86901; 86920; 87081; 93005; 93312; 93325; 93880; 93970; 94002; 94010; 94760; 97161; 97530; A4615; A4618; A6250; A6258; A6402; A6449; A7000; C1751; C1781; G0378; J0171; J0690; J1100; J1250; J1644; J1815; J2060; J2250; J2270; J2274; J2370; J2405; J2704; J2720; J3010; J3370; J3475; J3490; J7030; J7040; J7050; J7060; J7120; P9045

== ENCOUNTER 2022-07-30 11:07 | Day surgery (SDC) | payer MEDICARE, OTHER ==
[2022-07-25 12:35] LABS: BASOPHILS # (AUTO) 0.1 X10'3 (0-0.2); BASOPHILS % (AUTO) 0.9 % (0-1); EOSINOPHILS # (AUTO) 0.2 X10'3 (0-0.9); EOSINOPHILS % (AUTO) 2.9 % (0-6); HEMATOCRIT 39.7 % (42.0-52.0); HEMOGLOBIN 13.2 g/dl (14.0-17.9); LYMPHOCYTES # (AUTO) 0.8 X10'3 (1.1-4.8); LYMPHOCYTES % (AUTO) 9.3 % (21-51); MEAN CORPUSCULAR HEMOGLOBIN 31.3 PG (27.0-31.0); MEAN CORPUSCULAR HGB CONC 33.1 g/dL (33.0-36.5); MEAN CORPUSCULAR VOLUME 94.5 FL (78-98); MEAN PLATELET VOLUME 8.6 FL (7.4-10.4); MONOCYTES # (AUTO) 0.9 X10'3 (0-0.9); MONOCYTES % (AUTO) 10.6 % (2-12); NEUTROPHILS # (AUTO) 6.3 X10'3 (1.8-7.7); NEUTROPHILS % (AUTO) 76.3 % (42-75); PLATELET COUNT 322 X10'3 (140-440); RED CELL DISTRIBUTION WIDTH 13.1 % (11.5-14.5); WHITE BLOOD COUNT 8.3 X10'3 (4.5-11.0)
[2022-07-25 12:47] LABS: APTT 41 SECONDS (22-32)
[2022-07-25 12:51] LABS: ALBUMIN 4.1 G/DL (3.4-5.0); ANION GAP 10 (8-16); BLOOD UREA NITROGEN 67 MG/DL (7-18); BUN/CREATININE RATIO 23.8 (5.4-32.0); CALCIUM 9.8 MG/DL (8.5-10.1); CHLORIDE 99 MMOL/L (99-107); CHOLESTEROL 148 MG/DL (0-200); CREATININE 2.82 MG/DL (0.60-1.10); GLUCOSE 123 MG/DL (70-104); HDL CHOLESTEROL 49 MG/DL (35-60); LDL CHOLESTEROL 74 MG/DL (50-100); POTASSIUM 4.6 MMOL/L (3.5-5.1); SODIUM 135 MMOL/L (135-145); TOTAL CARBON DIOXIDE 26.3 MMOL/L (24-32); TRIGLYCERIDES 133 MG/DL (20-135); eGFR 22 ML/MIN
[~2022-07-30] VITALS: Ht 165.1 cm; Wt 66.2 kg
[2022-07-30] VITALS (10 sets, daily range): BP systolic 95–122; BP diastolic 47–66
[~2022-07-30 11:07] MED LIST changes: +ASPI81TA53 PO; -DEXTROSE 15 GM of carb/4 tabs (each vial/BOTTLE has 4 tablets) PO PRN; -DOCUMENT DATE & TIME OF BETA-BLOCKER PO ONE; +HYDR-3972 PO; -Insulin Reg/NS 100units/100mL 100 ML IV SCH; -LORazepam 2 mg/ml vial IV ONE; -MESSAGE TO PHARMACY PO ONE; -ceFAZolin inj. 2,000 MG in dextrose 5%-water 100 ML IV ONE; -dextrose 50%-water 50ml dispensing syringe IV PRN; -famotidine 20mg tablet PO ONE; -glucagon, human recombinant 1mg kit SUBCUT PRN; -insulin Lispro (HumaLOG) vial - multi-dose SQ SCH; -ipratropium 0.5 MG/2.5ML nebule NEB PRN; -metoprolol tartrate 12.5mg (1/2 tablet) PO ONE; -mupirocin 2% nasal ointment 1gm UD NS ONE; -ringers solution, lacted 1,000 ML IV SCH; -vancomycin/NS 1 GM in NS 250 ML IV ONE
[2022-07-30] MEDS ORDERED: ENOX60DI10 SQ (11:33)
[2022-07-30] MEDS ORDERED: CARV6.2553 PO (11:33)
[2022-07-30] MEDS ORDERED: diphenhydrAMINE 25mg capsule PO PRN (11:40)
[2022-07-30] MEDS ORDERED: normal saline 1,000 ML IV SCH (11:40)
[2022-07-30] MEDS ORDERED: LORazepam 0.5 MG tablet PO PRN (11:40)
[2022-07-30] MEDS ORDERED: LIDOcaine 1% 30ml preserv. free vial ONE (12:03)
[2022-07-30] MEDS ORDERED: midazolam 1 mg/ML 2ml injection ONE (12:03)
[2022-07-30] MEDS ORDERED: fentaNYL/PF 50MCG/1 ML 2ML syringe ONE (12:03)
[2022-07-30] MEDS ORDERED: iohexol 350MG/ML 100ml bottle IV ONE ×2 (12:04→14:11)
[2022-07-30] MEDS ORDERED: heparin 1,000unit/ml 10ml vial 10 ML ONE (14:10)
[2022-07-30] MEDS ORDERED: aspirin 325mg tablet ONE (14:13)
[2022-07-30] MEDS ORDERED: clopidogrel 300mg tablet ONE (14:14)
[2022-07-30] MEDS ORDERED: normal saline 1000ml 1,000 ML IV ONE (15:25)
[2022-07-30] MEDS ORDERED: HYDROcodone/acetaminophen 10/325mg tab PO PRN (15:25)
[2022-07-30] MEDS ORDERED: HYDROcodone/acetaminophen 5mg/325mg tablet PO PRN (15:25)
[2022-07-30] MEDS ORDERED: clopidogrel 75mg tablet ONE (18:00)
== END 2022-07-30 18:20 | disposition home or self-care (01) ==
LOC: SSTAY O 11:07
PROVIDERS: ATTEND Student in an Organized Health Care Education/Training Program
DX: I25.10 Atherosclerotic heart disease of native coronary artery without angina pectoris (principal); I13.0 Hypertensive heart and chronic kidney disease with heart failure and stage 1 through stage 4 chronic kidney disease, or unspecified chronic kidney disease; I50.9 Heart failure, unspecified; N18.4 Chronic kidney disease, stage 4 (severe); I48.91 Unspecified atrial fibrillation; E03.9 Hypothyroidism, unspecified; Z95.810 Presence of automatic (implantable) cardiac defibrillator; Z95.2 Presence of prosthetic heart valve; Z79.01 Long term (current) use of anticoagulants; Z79.899 Other long term (current) drug therapy
CPT/HCPCS: 36415; 80048; 80061; 85025; 85610; 85730; 93005; 93454; 99152; 99153; C1725; C1751; C1760; C1769; C1874; C1894; C9600; J1644; J2250; J3010; J3490; J7030; Q0163; Q9967; A6258

== ENCOUNTER 2023-06-10 10:45 | Emergency (ER) | payer MEDICARE, OTHER ==
[~2023-06-10] VITALS: Ht 162.6 cm; Wt 67.2 kg
[~2023-06-10 10:45] MED LIST changes: -ASPI81TA53 PO; -ATRIN NAS; -CARV-50 PO; +CARV6.2553 PO; -CHOL400T57 PO; +ENOX60DI10 SQ; -FERR236T3 PO; -HYDR-3972 PO; +LOSA-415 PO; -LOSA25TA96 PO
[2023-06-10 11:02] VITALS: TEMP 97.6
[2023-06-10 11:08] LABS: BASOPHILS # (AUTO) 0.1 X10'3 (0-0.2); BASOPHILS % (AUTO) 0.5 % (0-1); EOSINOPHILS # (AUTO) 0.2 X10'3 (0-0.9); EOSINOPHILS % (AUTO) 1.3 % (0-6); HEMOGLOBIN 11.7 g/dl (14.0-17.9); LYMPHOCYTES # (AUTO) 0.5 X10'3 (1.1-4.8); LYMPHOCYTES % (AUTO) 3.3 % (21-51); MEAN CORPUSCULAR HEMOGLOBIN 31.9 PG (27.0-31.0); MEAN CORPUSCULAR HGB CONC 33.6 g/dL (33.0-36.5); MEAN PLATELET VOLUME 8.5 FL (7.4-10.4); MONOCYTES # (AUTO) 1.5 X10'3 (0-0.9); MONOCYTES % (AUTO) 11.3 % (2-12); NEUTROPHILS # (AUTO) 11.4 X10'3 (1.8-7.7); NEUTROPHILS % (AUTO) 83.6 % (42-75); PLATELET COUNT 314 X10'3 (140-440); RED BLOOD COUNT 3.68 X10'6 (4.70-6.10); RED CELL DISTRIBUTION WIDTH 13.5 % (11.5-14.5); WHITE BLOOD COUNT 13.6 X10'3 (4.5-11.0)
[2023-06-10 11:20] LABS: ALANINE AMINOTRANSFERASE 29 U/L (12-78); ALBUMIN/GLOBULIN RATIO 1.1 (1.1-1.5); ALKALINE PHOSPHATASE 87 IU/L (46-116); ANION GAP 11 (8-16); ASPARTATE AMINO TRANSFERASE 20 U/L (10-37); BILIRUBIN,TOTAL 0.7 MG/DL (0.1-1.0); BLOOD UREA NITROGEN 100 MG/DL (7-18); BUN/CREATININE RATIO 22.2 (10.0-20.0); CALCIUM 9.1 MG/DL (8.5-10.1); CHLORIDE 98 MMOL/L (99-107); GLUCOSE 181 MG/DL (70-104); POTASSIUM 4.9 MMOL/L (3.5-5.1); SODIUM 130 MMOL/L (135-145); TOTAL PROTEIN 7.8 G/DL (6.4-8.2); eCRCL 12 ML/MIN; eGFR 13 ML/MIN
[2023-06-10 11:41] VITALS: BP 98/49; PULSE 78; RESP 16; O2SAT 99
== END 2023-06-10 11:43 | disposition home or self-care (01) ==
LOC: ER 10:45
DX: R79.9 Abnormal finding of blood chemistry, unspecified (principal)
CPT/HCPCS: 36415; 80053; 85025; 99283